=== PATIENT | male | born 1985 | race American Indian/Alaskan Native ===

== ENCOUNTER 2017-01-05 13:39 | Emergency (ER) | payer SELFPAY ==
[2017-01-05] MEDS ORDERED: TORADOL IM ONE (15:40)
[2017-01-05] MEDS ORDERED: FLEXERIL PO ONE (15:40)
--- NOTE | 2017-01-05 15:40 | XRay Report ---
ROUTINE CHEST, TWO VIEWS: History: Chest trauma with pain. PA and lateral views demonstrate the heart and mediastinal contour to be of normal size and shape. The lungs are clear and fully expanded and the soft tissues and bony structures are normal. IMPRESSION: Normal study.
--- NOTE | 2017-01-05 15:53 | Emergency Department Report ---
Entered by MICK SULLIVAN, acting as scribe for HARISH DEWITT PA. ED Chest Pain HPI - General Chief Complaint: Chest Pain Stated Complaint: CHEST PAIN Time Seen by Provider: 01/05/17 14:25 Source: patient Mode of arrival: Ambulatory Limitations: No Limitations - History of Present Illness Initial Comments: 31 y/o male presents with sharp chest pain after being hit with an elbow yesterday while playing basketball. Pain is worsened by movement and non- radiating. Sx include SOB, pain with inspiration but pt denies N/V or bruising. he rates pain as 6 out of 10 in intensity. She states pain is localized to his mid sternal chest region. No additional Sx MD Complaint: chest pain -: days(s) (1) Onset: other (hit in the chest with an elbow while playing basketball ) Pain Location: substernal Pain Radiation: none Severity: mild Quality: sharp Consistency: constant Improves With: nothing Worsens With: other (movement) re: denies: nausea, vomting, other (bruising) Other Symptoms: other (SOB) Treatments Prior to Arrival: none - Related Data Previous Rx's Medication Instructions Recorded Last Taken Type Cyclobenzaprine [Flexeril] 10 mg PO BID PRN #20 tablet 01/05/17 Unknown Rx Ibuprofen [Motrin] 800 mg PO Q8HR PRN #30 tablet 01/05/17 Unknown Rx Allergies Allergy/AdvReac Type Severity Reaction Status Date / Time No Known Allergies Allergy Verified 01/05/17 13:54 OZIEL score - Oziel Score Age > 65: (0) No Aspirin use within the Past 7 Days: (0) No 3 or more CAD Risk Factors: (0) No 2 or more Angina events in past 24 hrs: (0) No Known CAD with more than 50% Stenosis: (0) No Elevated Cardiac Markers: (0) No ST Deviation Greater than 0.5mm: (0) No OZIEL Score: 0 ED Review of Systems Comment: All other systems reviewed and negative Respiratory: shortness of breath Cardiovascular: chest pain Gastrointestinal: denies: nausea, vomiting Skin: denies: other (ecchymosis ) ED Past Medical Hx - Past Medical History Hx Asthma: Yes (CHILD) - Surgical History Additional Surgical History: UMBILICAL HERNIA REPAIR - Social History Smoking Status: Never Smoker Substance Use Type: Alcohol - Medications Home Medications: Home Medications Medication Instructions Recorded Confirmed Last Taken Type Cyclobenzaprine [Flexeril] 10 mg PO BID PRN #20 tablet 01/05/17 Unknown Rx Ibuprofen [Motrin] 800 mg PO Q8HR PRN #30 tablet 01/05/17 Unknown Rx ED Physical Exam - General Limitations: No Limitations - Other Other exam information: GENERAL: Patient is alert and oriented x 3. No apparent distress, normal gait, atraumatic. HEAD: Head is normocephalic and atraumatic. EYES: Extraocular movements are intact. NECK: Supple. Non edematous, no carotid bruits. No lymphadenopathy or thyromegaly. LUNGS: Symmetrical with respiration. No wheezing, rales or crackles, CTAB. HEART: Regular rate and rhythm with normal S1/S2 present. No murmurs, rubs, or gallops. TTP mid-chest region ABDOMEN: Soft, nondistended. Nontender to palpation on all quadrants. No organomegaly was noted. Positive bowel sounds. No CVA tenderness. EXTREMITIES/MUSCULOSKELETAL: No cyanosis, clubbing, rash, lesions or edema. Full ROM bilaterally. UE Pulses 2+ bilaterally. UE 5+ strength bilaterally SKIN: Warm and dry. No lesions, ulceration or induration present NEUROLOGIC: No focal deficit. ED Course Vital Signs 01/05/17 13:55 Temperature 98.5 F Pulse Rate 45 L Respiratory 17 Rate Blood Pressure 119/83 O2 Sat by Pulse 100 Oximetry ED Medical Decision Making - EKG Data EKG shows normal: sinus rhythm Rate: bradycardia - Radiology Data Radiology results: report reviewed, image reviewed Ordering Physician: LARISSA CARRION Date of Service: 01/05/17 Procedure(s): XR chest routine 2V Accession Number(s): [id number] cc: LARISSA CARRION Fluoro Time In Minutes: ROUTINE CHEST, TWO VIEWS: History: Chest trauma with pain. PA and lateral views demonstrate the heart and mediastinal contour to be of normal size and shape. The lungs are clear and fully expanded and the soft tissues and bony structures are normal. IMPRESSION: Normal study. Transcribed By: MRP Dictated By: JENIFER HUERTA MD Electronically Authenticated By: JENIFER HUERTA MD Signed Date/Time: 01/05/17 1526 - Medical Decision Making 31-year-old male presents with chest wall contusion ED course: Patient received Flexeril and Toradol in ED. Chest x-ray ordered. Chest x-ray shows normal study no acute fracture and no cardiopulmonary changes. EKG shows mild sinus bradycardia. Discussed findings the patient. His constipation and follow up with owner professional engineer for reassessment and repeat EKG Discussed with patient to follow up with PCP as referred, and to return to the ED if his symptoms return or worsen. Patient states understanding and will follow instructions. Vital signs stable, patient is in no acute distress. ED Disposition Clinical Impression: Contusion of chest wall Qualifiers: Encounter type: initial encounter Laterality: unspecified laterality Qualified Code(s): S20.219A - Contusion of unspecified front wall of thorax, initial encounter Disposition: DISCHARGED TO HOME OR SELFCARE Is pt being admited?: No Does the pt Need Aspirin: No Condition: Stable Instructions: Costochondritis (ED), Contusion in Adults (ED) Additional Instructions: Heat application to affected area. Take medication as prescribed. Prescriptions: Cyclobenzaprine [Flexeril] 10 mg PO BID PRN #20 tablet PRN Reason: Muscle Spasm Ibuprofen [Motrin] 800 mg PO Q8HR PRN #30 tablet PRN Reason: Pain Referrals: PRIMARY CARE, [Primary Care Provider] - 3-5 Days SWETA MANN MD [Staff Physician] - 3-5 Days NATALIO WICK MD [Referring] - 3-5 Days Forms: Accompanied Note, Work/School Release Form(ED) Time of Disposition: 15:42 This documentation as recorded by the LAURIE otto RYAN,accurately reflects the service I personally performed and the decisions made by ESDRAS perkins OYINLOLA A, PA.
[2017-01-05 16:17] VITALS: BP 149/93
== END 2017-01-05 16:16 | disposition home or self-care (01) ==
LOC: ED 13:39
DX: S20.219A Contusion of unspecified front wall of thorax, initial encounter (principal); W50.0XXA Accidental hit or strike by another person, initial encounter; Y93.67 Activity, basketball; Y99.8 Other external cause status; Y92.89 Other specified places as the place of occurrence of the external cause
CPT/HCPCS: 71020; 93005; 93010; 96372; 99283; J1885

== ENCOUNTER 2017-02-27 11:10 | Emergency (ER) | payer SELFPAY ==
[2017-02-27 11:42] VITALS: BP 125/81
[2017-02-27] MEDS ORDERED: FUL-GLO OP ONE (11:42)
[2017-02-27] MEDS ORDERED: TETRACAINE 0.5% OD STA (11:42)
--- NOTE | 2017-02-27 11:43 | Emergency Department Report ---
Chief Complaint: Eye Problems Stated Complaint: RT EYE BUG BITE Time Seen by Provider: 02/27/17 11:41 - HPI History of Present Illness: PT c/o bump to R eye x 3-4 days. PT denies injury. - ROS Review of Systems: + swelling to R eye lid + itching - Exam Vital Signs: Vital Signs 02/27/17 11:40 Temperature 98.6 F Pulse Rate 54 L Respiratory 20 Rate Blood Pressure 125/81 O2 Sat by Pulse 100 Oximetry Physical Exam: + swelling to R upper eye lid, + abrasion to R eye lid MSE screening note: Focused history and physical exam performed. Due to findings the following was ordered: wood's lamp exam ED Disposition for MSE Condition: Stable
--- NOTE | 2017-02-27 12:52 | Emergency Department Report ---
ED Eye Problem HPI - General Chief complaint: Eye Problems Stated complaint: RT EYE BUG BITE Time Seen by Provider: 02/27/17 11:41 Source: patient Mode of arrival: Ambulatory Limitations: No Limitations - History of Present Illness Initial comments: This is a 32-year-old female well-nourished with nontoxic or ill in appearance that presents with right eyelid swelling with redness to the corner of the right eye laterally that began 2 days ago. Patient denies any trauma, plus, drainage, blurred vision, visual changes, fever, chills, eye pain, facial drooping, headache, shortness of breath, chest pain, nausea or vomiting. Patient stated has been crusting near the eyes well. Denies any allergies. Denies any significant past medical history. MD chief complaint: other (eyelid swelling with redness and crusting) -: Gradual, days(s) (2) Location: right eye Place: home If Injury: none Eye Symptoms: itching, discharge Severity scale (0 -10): 0 Associated Symptoms: none. denies: headache, neck pain, nausea/vomiting, cough , rhinorrhea, fever, shortness of breath Treatments Prior to Arrival: none - Related Data Previous Rx's Medication Instructions Recorded Last Taken Type Cyclobenzaprine [Flexeril] 10 mg PO BID PRN #20 tablet 01/05/17 Unknown Rx Ibuprofen [Motrin] 800 mg PO Q8HR PRN #30 tablet 01/05/17 Unknown Rx Erythromycin [Erythromycin Ophth 10 applic OP 4XD #1 tube 02/27/17 Unknown Rx Oint] Allergies Allergy/AdvReac Type Severity Reaction Status Date / Time No Known Allergies Allergy Verified 01/05/17 13:54 ED Review of Systems ROS: Stated complaint: RT EYE BUG BITE Other details as noted in HPI Constitutional: denies: chills, fever Eyes: denies: eye pain, eye discharge, vision change ENT: denies: ear pain, throat pain Respiratory: denies: cough, shortness of breath, wheezing Cardiovascular: denies: chest pain, palpitations Endocrine: no symptoms reported Gastrointestinal: denies: abdominal pain, nausea, diarrhea Genitourinary: denies: urgency, dysuria Musculoskeletal: denies: back pain, joint swelling, arthralgia Skin: denies: rash, lesions Neurological: denies: headache, weakness, paresthesias Psychiatric: denies: anxiety, depression Hematological/Lymphatic: denies: easy bleeding, easy bruising ED Past Medical Hx - Past Medical History Hx Asthma: Yes (CHILD) - Surgical History Additional Surgical History: UMBILICAL HERNIA REPAIR - Social History Smoking Status: Never Smoker Substance Use Type: None - Medications Home Medications: Home Medications Medication Instructions Recorded Confirmed Last Taken Type Cyclobenzaprine [Flexeril] 10 mg PO BID PRN #20 tablet 01/05/17 Unknown Rx Ibuprofen [Motrin] 800 mg PO Q8HR PRN #30 tablet 01/05/17 Unknown Rx Erythromycin [Erythromycin Ophth 10 applic OP 4XD #1 tube 02/27/17 Unknown Rx Oint] ED Physical Exam - General Limitations: No Limitations General appearance: alert, in no apparent distress - Head Head exam: Present: atraumatic, normocephalic, normal inspection - Eye Eye exam: Present: normal appearance, PERRL, EOMI. Absent: scleral icterus, conjunctival injection, nystagmus, periorbital swelling, periorbital tenderness Pupils: Present: normal accommodation - Expanded Eye Exam Expanded Eyelids: Normal Inspection: Right, Erythema: Right, Swelling: Right (with itching) Pupils: Regular, Round: Bilateral, Reactive: Bilateral Sclera/Conjunctival: Normal Inspection: Bilateral Visual acuity (R) = 20/: 20 Visual acuity (L) = 20/: 20 With correction: No - ENT ENT exam: Present: normal exam, normal orophraynx, mucous membranes moist, TM's normal bilaterally, normal external ear exam - Neck Neck exam: Present: normal inspection, full ROM. Absent: tenderness, meningismus, lymphadenopathy, thyromegaly - Respiratory Respiratory exam: Present: normal lung sounds bilaterally. Absent: respiratory distress, wheezes, rales, rhonchi, stridor, chest wall tenderness, accessory muscle use, decreased breath sounds, prolonged expiratory - Cardiovascular Cardiovascular Exam: Present: regular rate, normal rhythm, normal heart sounds. Absent: systolic murmur, diastolic murmur, rubs, gallop - GI/Abdominal GI/Abdominal exam: Present: soft, normal bowel sounds. Absent: distended, tenderness, guarding, rebound, rigid, diminished bowel sounds, hyperactive bowel sounds, hypoactive bowel sounds, organomegaly, mass - Rectal Rectal exam: Present: deferred - Extremities Exam Extremities exam: Present: normal inspection, full ROM, normal capillary refill. Absent: tenderness, pedal edema, joint swelling, calf tenderness - Back Exam Back exam: Present: normal inspection, full ROM. Absent: tenderness, CVA tenderness (R), CVA tenderness (L), muscle spasm, paraspinal tenderness, vertebral tenderness, rash noted - Neurological Exam Neurological exam: Present: alert, oriented X3, CN II-XII intact, normal gait - Psychiatric Psychiatric exam: Present: normal affect, normal mood - Skin Skin exam: Present: warm, dry, intact, normal color. Absent: rash - Other Other exam information: Under love lamp, no corneal abrasion noted of [place] body noted to right eye. ED Course Vital Signs 02/27/17 11:40 Temperature 98.6 F Pulse Rate 54 L Respiratory 20 Rate Blood Pressure 125/81 O2 Sat by Pulse 100 Oximetry ED Medical Decision Making - Medical Decision Making Ed course: This is a 32-year-old male that presents with blepharitis 1- visual acuity has been obtained. Under Wood lamp, using a tetracycline with flourscein to examine for foreign body or corneal abrasion. No corneal abrasion or foreign body noted to the right eye. 2- patient received erythromycin ointment at the time of discharge was instructed to put 4 times a day to the upper eyelid. 3- patient also notified to follow up with her primary care doctor in 3-5 days or symptoms worsen report to emergency room as soon as possible. 4- at time time of discharge, the patient does not seem toxic or ill in appearance. No acute signs of distress noted. Patient agrees to discharge treatment plan of care. No further questions noted by the patient. Critical care attestation.: If time is entered above; I have spent that time in minutes in the direct care of this critically ill patient, excluding procedure time. ED Disposition Clinical Impression: Blepharitis Qualifiers: Blepharitis type: unspecified type Laterality: unspecified laterality Qualified Code(s): H01.009 - Unspecified blepharitis unspecified eye, unspecified eyelid Disposition: DC-01 TO HOME OR SELFCARE Is pt being admited?: No Does the pt Need Aspirin: No Condition: Stable Instructions: Erythromycin (Into the eye), Blepharitis (ED) Additional Instructions: Take full course of antibiotics ointment to the upper eyelid 4 times a day until symptoms subside or no more than 4 weeks. Follow-up with her primary care doctor in 3-5 days or if symptoms worsen report back to emergency room as soon as possible. Prescriptions: Erythromycin [Erythromycin Ophth Oint] 10 applic OP 4XD #1 tube Referrals: PRIMARY CAREMD [Primary Care Provider] - 3-5 Days [facility] [Outside] - 3-[address] [facility] [place] [Outside] - 3-5 Days DIANELYS FERRO JR, MD [Staff Physician] - 3-5 Days Forms: Work/School Release Form(ED)
== END 2017-02-27 13:41 | disposition home or self-care (01) ==
LOC: ED 11:10
DX: H01.001 Unspecified blepharitis right upper eyelid (principal); J45.909 Unspecified asthma, uncomplicated
CPT/HCPCS: 99283

== ENCOUNTER 2017-07-05 14:37 | Emergency (ER) | payer SELFPAY ==
[2017-07-05 16:54] VITALS: BP 135/84
--- NOTE | 2017-07-06 08:13 | XRay Report ---
Left ankle 3 views. Findings: There is a small bony fragment is seen in the anterior soft tissues adjacent to the anterior margin of the talus. This may represent an old fracture. There is no evidence of an acute fracture or dislocation. No other significant findings are seen.
== END 2017-07-05 19:30 | disposition left against medical advice (07) ==
LOC: ED 14:37
DX: M25.572 Pain in left ankle and joints of left foot (principal); Z53.21 Procedure and treatment not carried out due to patient leaving prior to being seen by health care provider

== ENCOUNTER 2019-07-25 09:02 | Emergency (ER) | payer SELFPAY ==
[2019-07-25] MEDS ORDERED: IBUPROFEN 800 MG TAB PO ONE (10:00)
[2019-07-25] MEDS ORDERED: HYDROcodone/ACETAMINOPHEN 5-325 MG TAB PO ONE (10:00)
--- NOTE | 2019-07-25 10:10 | Emergency Department Report ---
ED Lower Extremity HPI - General Chief Complaint: Extremity Injury, Lower Stated Complaint: RT LEG INJURY Time Seen by Provider: 07/25/19 10:00 Source: patient Mode of arrival: Ambulatory Limitations: No Limitations - History of Present Illness Initial Comments: Mr. Shaffer is a 34 yo male who presents after right leg pain during a baskeball injury. He was knee'd in the right lower leg. He has pain and lateral swelling to the lower leg. No other injuries. MD Complaint: leg injury -: Sudden Injury: Leg: Right Type of Injury: blunt Place: other (SocialDialball recreation) Improves With: immobilization Worsens With: weight bearing Context: direct blow - Related Data Previous Rx's Medication Instructions Recorded Last Taken Type Cyclobenzaprine [Flexeril] 10 mg PO BID PRN #20 tablet 01/05/17 Unknown Rx Ibuprofen [Motrin] 800 mg PO Q8HR PRN #30 tablet 01/05/17 Unknown Rx Erythromycin [Erythromycin Ophth 10 applic OP 4XD #1 tube 02/27/17 Unknown Rx Oint] Acetaminophen/Codeine [Tylenol 1 tab PO Q6H PRN #12 tab 06/03/19 Unknown Rx /Codeine # 3 tab] Ibuprofen [Motrin] 600 mg PO Q8H PRN #20 tablet 06/03/19 Unknown Rx Ibuprofen [Motrin 400 MG tab] 400 mg PO QID 5 Days #20 tablet 07/25/19 Unknown Rx Allergies Allergy/AdvReac Type Severity Reaction Status Date / Time No Known Allergies Allergy Verified 01/05/17 13:54 ED Review of Systems ROS: Stated complaint: RT LEG INJURY Other details as noted in HPI Constitutional: denies: fever, malaise Musculoskeletal: myalgia. denies: joint swelling, arthralgia Skin: denies: rash, lesions ED Past Medical Hx - Past Medical History Hx Asthma: Yes (CHILD) - Surgical History Past Surgical History?: No Additional Surgical History: UMBILICAL HERNIA REPAIR - Social History Smoking Status: Current Some Day Smoker Substance Use Type: None - Medications Home Medications: Home Medications Medication Instructions Recorded Confirmed Last Taken Type Cyclobenzaprine [Flexeril] 10 mg PO BID PRN #20 tablet 01/05/17 Unknown Rx Ibuprofen [Motrin] 800 mg PO Q8HR PRN #30 tablet 01/05/17 Unknown Rx Erythromycin [Erythromycin Ophth 10 applic OP 4XD #1 tube 02/27/17 Unknown Rx Oint] Acetaminophen/Codeine [Tylenol 1 tab PO Q6H PRN #12 tab 06/03/19 Unknown Rx /Codeine # 3 tab] Ibuprofen [Motrin] 600 mg PO Q8H PRN #20 tablet 06/03/19 Unknown Rx Ibuprofen [Motrin 400 MG tab] 400 mg PO QID 5 Days #20 tablet 07/25/19 Unknown Rx ED Physical Exam - General Limitations: No Limitations General appearance: alert, in no apparent distress - Head Head exam: Present: atraumatic, normocephalic - Eye Eye exam: Present: normal appearance - Neck Neck exam: Present: normal inspection, full ROM - Extremities Exam Extremities exam: Present: other (right lower leg: mild lateral swelling with diffuse lateral tenderness intact skin) - Expanded Lower Extremity Exam Right Hip exam: Present: normal inspection, full ROM Upper Leg exam: Present: normal inspection, full ROM Knee exam: Present: normal inspection, full ROM. Absent: tenderness, swelling, abrasion, ecchymosis, deformity Lower Leg exam: Present: tenderness, swelling Ankle exam: Present: normal inspection, full ROM. Absent: tenderness Foot/Toe exam: Present: normal inspection, full ROM - Neurological Exam Neurological exam: Present: alert, oriented X3 - Psychiatric Psychiatric exam: Present: normal affect, normal mood - Skin Skin exam: Present: warm, dry, intact, normal color ED Course Vital Signs 07/25/19 09:05 Temperature 97.7 F Pulse Rate 45 L Respiratory 18 Rate Blood Pressure 125/77 O2 Sat by Pulse 98 Oximetry ED Lower Extremity MDM - Radiology Data Radiology results: report reviewed Tib-fib: No fracture or subluxation according to radiology impression - Medical Decision Making Right leg contusion without fracture or subluxation prescribed ibuprofen recommended rest ice elevation. Referred orthopedic surgeon as needed Critical care attestation.: If time is entered above; I have spent that time in minutes in the direct care of this critically ill patient, excluding procedure time. ED Disposition Clinical Impression: Contusion of right leg Disposition: DC-01 TO HOME OR SELFCARE Is pt being admited?: No Does the pt Need Aspirin: No Condition: Stable Instructions: Contusion in Adults (ED) Prescriptions: Ibuprofen [Motrin 400 MG tab] 400 mg PO QID 5 Days #20 tablet Referrals: NISHA IVERSON MD [Staff Physician] - as needed Forms: Work/School Release Form(ED)
--- NOTE | 2019-07-25 10:41 | XRay Report ---
RIGHT TIBIA AND FIBULA 2 VIEWS INDICATION / CLINICAL INFORMATION: leg contusion COMPARISON: None available. FINDINGS: BONES / JOINT(S): No acute fracture or subluxation. No significant arthritis. SOFT TISSUES: No significant abnormality. ADDITIONAL FINDINGS: None. Signer Name: Jose Manuel Ordoñez MD Signed: 07/25/2019 10:37 AM Workstation Name: [id number]
[2019-07-25 11:18] VITALS: BP 131/70
== END 2019-07-25 11:17 | disposition home or self-care (01) ==
LOC: ED 09:02
DX: S80.11XA Contusion of right lower leg, initial encounter (principal); F17.200 Nicotine dependence, unspecified, uncomplicated; X58.XXXA Exposure to other specified factors, initial encounter; Y93.89 Activity, other specified; Y92.89 Other specified places as the place of occurrence of the external cause; Y99.8 Other external cause status

== ENCOUNTER 2020-09-02 14:12 | Emergency (ER) | payer SELFPAY | END 2020-09-02 16:00 | disposition left against medical advice (07) | LOC: ED 14:12 | DX: R10.9 Unspecified abdominal pain (principal); Z53.21 Procedure and treatment not carried out due to patient leaving prior to being seen by health care provider ==

== ENCOUNTER 2021-08-25 11:03 | Emergency (ER) | payer SELFPAY ==
[2021-08-25] MEDS ORDERED: KETOROLAC 10 MG TAB PO ONE (12:31)
[2021-08-25] MEDS ORDERED: ACETAMINOPHEN 500 MG TAB PO ONE (12:31)
--- NOTE | 2021-08-25 12:34 | Emergency Department Report ---
- General Chief Complaint: Upper Respiratory Infection Stated Complaint: NOT FEELING GOOD, BAD HEADACHE Time Seen by Provider: 08/25/21 11:53 Source: patient Mode of arrival: Ambulatory Limitations: No Limitations - History of Present Illness Initial Comments: 36-year-old male who denies any significant past medical history presents to the ER today with flulike symptoms. Patient states that he symptoms started about 2 to 3 days ago. He states that he has had headaches, including pain behind both eyes, chills, generalized body aches, diarrhea, sore throat, rhinorrhea and gene ralized weakness. He denies any ill contacts or recent travel. He does not smoke. He states he is a social drinker. He denies any illicit drug use. He has not received a flu nor COVID-19 vaccine. He reports no additional symptoms at this time. MD Complaint: sore throat, rhinorrhea, other (Headache, body aches, diarrhea ) -: Gradual, days(s) (2) - Related Data Previous Rx's Medication Instructions Recorded Last Taken Type Ketorolac [Toradol] 10 mg PO Q6H PRN #20 tablet 08/25/21 Unknown Rx Allergies Allergy/AdvReac Type Severity Reaction Status Date / Time No Known Allergies Allergy Verified 08/25/21 11:08 ED Review of Systems ROS: Stated complaint: NOT FEELING GOOD, BAD HEADACHE Other details as noted in HPI Comment: All other systems reviewed and negative Constitutional: chills ENT: throat pain, other (rhinorrhea) Respiratory: denies: cough, orthopnea, shortness of breath, SOB with exertion, SOB at rest, wheezing Cardiovascular: denies: chest pain, palpitations, dyspnea on exertion, edema, syncope, paroxysmal nocturnal dyspnea Gastrointestinal: diarrhea. denies: abdominal pain, nausea, vomiting, constipation, hematemesis, hematochezia Genitourinary: denies: urgency, dysuria Musculoskeletal: myalgia. denies: back pain, joint swelling, arthralgia Skin: denies: rash, lesions, change in color, change in hair/nails, pruritus Neurological: denies: headache, weakness, numbness, paresthesias, confusion, abnormal gait, vertigo Psychiatric: denies: anxiety, depression, auditory hallucinations, visual hallucinations, homicidal thoughts, suicidal thoughts Hematological/Lymphatic: denies: easy bleeding, easy bruising, swollen glands ED Past Medical Hx - Past Medical History Hx Asthma: Yes (CHILD) - Surgical History Additional Surgical History: UMBILICAL HERNIA REPAIR - Social History Smoking Status: Current Some Day Smoker Substance Use Type: None - Medications Home Medications: Home Medications Medication Instructions Recorded Confirmed Last Taken Type Ketorolac [Toradol] 10 mg PO Q6H PRN #20 tablet 08/25/21 Unknown Rx ED Physical Exam - General Limitations: No Limitations General appearance: alert, in no apparent distress - Head Head exam: Present: atraumatic, normocephalic, normal inspection - Eye Eye exam: Present: normal appearance, PERRL, EOMI Pupils: Present: normal accommodation - ENT ENT exam: Present: mucous membranes moist, TM's normal bilaterally - Expanded ENT Exam Expanded Mouth exam: Present: normal external inspection Throat exam: Positive: normal inspection, tonsillar erythema. Negative: tonsillomegaly, tonsillar exudate, R peritonsillar mass, L peritonsillar mass - Neck Neck exam: Present: normal inspection, full ROM. Absent: meningismus - Respiratory Respiratory exam: Present: normal lung sounds bilaterally. Absent: respiratory distress, wheezes, rales, rhonchi - Cardiovascular Cardiovascular Exam: Present: regular rate, normal rhythm, normal heart sounds - GI/Abdominal GI/Abdominal exam: Present: soft. Absent: distended, tenderness, guarding - Neurological Exam Neurological exam: Present: alert, oriented X3, CN II-XII intact, normal gait - Psychiatric Psychiatric exam: Present: normal affect, normal mood - Skin Skin exam: Present: intact ED Course Vital Signs 08/25/21 11:08 Temperature 99.7 F H Pulse Rate 50 L Respiratory 18 Rate Blood Pressure 130/75 [Left] O2 Sat by Pulse 98 Oximetry ED Medical Decision Making - Medical Decision Making Rapid flu and strep negative. The patient is resting comfortably, is alert and in no distress. The patient has normal mental status and is neurologically intact. The patient appears well and is able to tolerate p.o. fluids and solids by mouth and there is no significant dehydration. There is no respiratory distress and no signs of systemic toxicity. The history, exam, diagnostic testing and current condition do not demonstrate an infectious process such as meningitis, severe pneumonia, retropharyngeal abscess, acute respiratory distress syndrome, sepsis or other serious viral/bacterial infection requiring further testing, treatment, consultation or admission at this time. The vital signs have been stable. Discussed test results, suspected diagnosis and treatment plan with patient the patient's condition is stable and appropriate for discharge. The patient will pursue further outpatient evaluation with the primary care physician or other designated or consulting physician as indicated on the discharge instructions. Critical care attestation.: If time is entered above; I have spent that time in minutes in the direct care of this critically ill patient, excluding procedure time. ED Disposition Clinical Impression: Viral illness Disposition: 01 HOME / SELF CARE / HOMELESS Is pt being admited?: No Does the pt Need Aspirin: No Condition: Stable Instructions: Viral Illness, Adult Additional Instructions: I recommend that you drink lots of fluids, take a multivitamin including vitamin D, vitamin C and zinc, you can take the Toradol as prescribed to help with any pain, you can alternate with Tylenol from [id number], you can also use [id number] cough cold medication to help with your symptoms. You can take Imodium from [id number] to help with diarrhea. I do recommend that she get an outpatient COVID-19 test as this could also be a cause of your symptoms. I do recommend that you quarantine at home until you get the results of your test. Return to the ER if your symptoms changes or worsens in any way. Prescriptions: Ketorolac [Toradol] 10 mg PO Q6H PRN #20 tablet PRN Reason: Pain Referrals: STEWART MONTES MD [Staff Physician] - 3-5 Days KARY COLINDRES MD [Staff Physician] - 3-5 Days Forms: Work/School Release Form(ED) Time of Disposition: 13:24
[2021-08-25 13:48] VITALS: BP 132/78
== END 2021-08-25 14:05 | disposition home or self-care (01) ==
LOC: ED 11:03
DX: B34.9 Viral infection, unspecified (principal); J45.909 Unspecified asthma, uncomplicated; F17.200 Nicotine dependence, unspecified, uncomplicated
CPT/HCPCS: 87116; 87400; 87430; 99283